=== PATIENT | female | born 1945 | race Two or more races ===

== ENCOUNTER 2021-06-02 12:44 | Emergency (ER) | payer MEDICARE, MEDICAID ==
[~2021-06-02] VITALS: Ht 157.5 cm; Wt 81.6 kg
[2021-06-02 14:19] VITALS: BP 139/49
== END 2021-06-02 17:28 | disposition home or self-care (01) ==
LOC: ER 12:45
DX: U07.1 COVID-19 (principal); M17.12 Unilateral primary osteoarthritis, left knee; G89.29 Other chronic pain; M54.50 Low back pain, unspecified; E78.5 Hyperlipidemia, unspecified; Z88.5 Allergy status to narcotic agent
CPT/HCPCS: 36415; 71045; 73562; 87426